=== PATIENT | female | born 1945 | race American Indian/Alaskan Native ===

== ENCOUNTER 2017-11-07 04:13 | Emergency (ER) | payer MEDICARE ==
[2017-11-07 04:13] VITALS: BMI 39.1
[2017-11-07 04:32] VITALS: RESP 18; TEMP 97.6; O2SAT 95
--- NOTE | 2017-11-07 05:07 | C.PDOC ---
History Of Present Illness 72 year old female presents to the ER with a complaint of cough and sore throat for the past 3 weeks, associated with left eye redness that began today. Denies fever, chills, chest pain, or SOB. Time Seen by Provider: 11/07/17 04:24 Chief Complaint (Nursing): Cough, Cold, Congestion History Per: Patient History/Exam Limitations: no limitations Onset/Duration Of Symptoms: Days Current Symptoms Are (Timing): Still Present Location Of Pain: Throat Sick Contacts (Context): None Associated Symptoms: Sore Throat, Cough, Other (Eye injection) Ear Symptoms: Bilateral: None Recent travel outside of the [place]: No Past Medical History Reviewed: Historical Data, Nursing Documentation, Vital Signs Vital Signs: Last Vital Signs Temp 97.6 F 11/07/17 04:22 Pulse 92 H 11/07/17 04:22 Resp 18 11/07/17 04:22 BP 187/88 H 11/07/17 04:22 Pulse Ox 95 11/07/17 05:45 - Medical History PMH: HTN, Peripheral Edema (left ankle +1) Family History: States: Unknown Family Hx - Social History Hx Alcohol Use: No Hx Substance Use: No - Immunization History Hx Tetanus Toxoid Vaccination: No Hx Influenza Vaccination: No Hx Pneumococcal Vaccination: No Review Of Systems Constitutional: Negative for: Fever, Chills Eyes: Positive for: Redness ENT: Positive for: Throat Pain Cardiovascular: Negative for: Chest Pain, Palpitations Respiratory: Positive for: Cough. Negative for: Shortness of Breath Physical Exam - Physical Exam Appears: Non-toxic, No Acute Distress Skin: Normal Color, Warm, Dry, No Rash Head: Atraumatic, Normacephalic Eye(s): bilateral: PERRL, EOMI, right: Normal Inspection, left: Other ( Injection with yellow discharge) Ear(s): Bilateral: Normal Nose: Normal Oral Mucosa: Moist Throat: Normal, No Erythema, No Exudate Neck: Normal, Supple Chest: Symmetrical, No Tenderness Cardiovascular: Rhythm Regular, No Friction Rub, No Murmur Respiratory: Normal Breath Sounds, No Rales, No Rhonchi, No Wheezing Gastrointestinal/Abdominal: Soft, No Tenderness Extremity: Normal ROM Neurological/Psych: Oriented x3, Normal Speech, Normal Motor Gait: Steady ED Course And Treatment O2 Sat by Pulse Oximetry: 95 (Room air) Pulse Ox Interpretation: Normal Medical Decision Making Medical Decision Making: Patient is resting comfortably in the ER in no acute distress, will discharge home with instructions to follow up with PMD for further evaluation or return if symptoms worsen. Disposition - Disposition Referrals: [facility] at [facility] [Outside] Bakari Jarvis MD [Staff Provider] - Disposition: HOME/ ROUTINE Disposition Time: 05:42 Condition: GOOD Additional Instructions: Follow up with the medical doctor within 1-2 days. Return if worsened. Prescriptions: Loratadine [Claritin] 10 mg PO DAILY #10 tab predniSONE [Prednisone] 10 mg PO BID #10 tab Tobramycin 0.3% [Tobramycin 5 Ml] 1 drop OU TID #1 bottle Instructions: Conjunctivitis (Pinkeye), Upper Respiratory Infection (ED) Forms: [employer] ([employer]) - Clinical Impression Clinical Impression: Upper respiratory infection, Conjunctivitis - PA / MUD LOGGER / Resident Statement MD/DO has reviewed & agrees with the documentation as recorded. - Scribe Statement The provider has reviewed the documentation as recorded by the Scribe Bakari Hale All medical record entries made by the Scribshi were at my direction and personally dictated by me. I have reviewed the chart and agree that the record accurately reflects my personal performance of the history, physical exam, medical decision making, and the department course for this patient. I have also personally directed, reviewed, and agree with the discharge instructions and disposition.
[2017-11-07 05:58] VITALS: BP 154/72; PULSE 75
== END 2017-11-07 06:08 | disposition home or self-care (01) ==
LOC: C.ER 04:13
DX: J06.9 Acute upper respiratory infection, unspecified (principal); H10.9 Unspecified conjunctivitis